=== PATIENT | female | born 1960 | race Caucasian/White ===

== ENCOUNTER 2023-06-30 10:02 | Day surgery (SDC) | payer BC ==
[2023-06-21 15:03] VITALS: BMI 23.8
[2023-06-30 12:40] VITALS: TEMP 98
[2023-06-30 12:43] VITALS: BP 104/58; PULSE 80; RESP 19
== END 2023-06-30 12:30 | disposition home or self-care (01) ==
LOC: FASU-ENDO 10:02
PROVIDERS: ATTEND Internal Medicine Gastroenterology
PROC: 0DBP8ZX Excision of Rectum, Via Natural or Artificial Opening Endoscopic, Diagnostic (ICD-10-PCS; principal; 2023-06-30 11:27)
DX: Z12.11 Encounter for screening for malignant neoplasm of colon (principal); D12.8 Benign neoplasm of rectum; K64.1 Second degree hemorrhoids
CPT/HCPCS: 88305-TC